=== PATIENT | female | born 1935 | race Caucasian/White ===

== ENCOUNTER 2017-02-19 12:22 | Inpatient (IN) | payer OTHER ==
[~2017-02-19] VITALS: Ht 182.9 cm; Wt 73.2 kg
[2017-02-19] MEDS ORDERED: TOUJEO SOL300 UNIT/1 SC (13:50)
[2017-02-19] MEDS ORDERED: METOLAZONE2.5 MG PO (13:50)
[2017-02-19] MEDS ORDERED: HUMALOG100 UNIT/2 SC (13:52)
[2017-02-19] MEDS ORDERED: METAXALONE800 MG PO (13:52)
[2017-02-19] MEDS ORDERED: TRAZODONE HCL50 MG PO (13:52)
[2017-02-19] MEDS ORDERED: PRAMIPEXOLE D0.75 MG PO (13:53)
[2017-02-19] MEDS ORDERED: MONTELUKAST SOD10 MG PO (13:53)
[2017-02-19] MEDS ORDERED: LOSARTAN POTASS50 MG PO (13:54)
[2017-02-19] MEDS ORDERED: MYRBETRIQ25 MG PO (13:55)
[2017-02-19] MEDS ORDERED: TRAMADOL HCL50 MG PO (13:55)
[2017-02-19] MEDS ORDERED: METOPROLOL TAR100 MG PO (13:55)
[2017-02-19] MEDS ORDERED: OMEPRAZOLE20 MG PO (13:56)
[2017-02-19] MEDS ORDERED: VENTOLIN HFA18 GM IH (13:57)
[2017-02-19] MEDS ORDERED: METOLAZONE5 MG PO (13:57)
[2017-02-19] MEDS ORDERED: IRON325 MG PO (13:57)
[2017-02-19] MEDS ORDERED: COUMADIN5 MG PO (13:58)
[2017-02-19] MEDS ORDERED: EXTRA STRENGTH500 M1 PO (13:59)
[2017-02-19] MEDS ORDERED: K-DUR20 MEQ PO (13:59)
[2017-02-19] MEDS ORDERED: NOVOLOG PE100 UNITS/ SC (13:59)
[2017-02-19] MEDS ORDERED: GABAPENTIN100 MG PO (14:00)
[2017-02-19] MEDS ORDERED: DEMADEX20 MG PO (14:00)
[2017-02-19] MEDS ORDERED: ASPIR 8181 M1 PO (14:01)
[2017-02-19] MEDS ORDERED: CALCIUM PETITE1 EACH PO (14:01)
[2017-02-19] MEDS ORDERED: NATURAL LUTEIN20 MG PO (14:02)
[2017-02-19 14:15] LABS: EOSINOPHIL (%) 0 % (0-5); HEMATOCRIT 37.2 % (36.0-46.0); IMMATURE GRANULOCYTE (%) 0.3 % (0.0-0.7); INSTRUMENT ABS NEUTROPHIL CT 5.7 K/uL; LYMPHOCYTE COUNT 0.3 K/uL (1.0-2.8); MCH 30.4 PG (29.0-34.0); MCHC 32.8 G/DL (30.0-36.0); MCV 92.8 FL (83-99); MEAN PLAT.VOLUME 10.7 uM^3 (9.5-12.4); MONOCYTE (%) 18.5 % (3-12); MONOCYTE COUNT 1.4 K/uL (0-0.8); NEUTROPHIL (%) 77.1 % (45-76); NEUTROPHIL COUNT 5.7 K/uL (1.8-6.4); PLATELET COUNT 225 K/uL (156-360); RBC DIS.WIDTH-CV 14.3 % (11.8-14.6); RBC DIS.WIDTH-SD 48.7 % (39-53); RED BLOOD COUNT 4.01 M/uL (3.80-5.20); WHITE BLOOD COUNT 7.4 K/uL (4.1-10.2)
[2017-02-19 14:30] LABS: CHLORIDE 103 mEq/L (99-109); POTASSIUM 4.1 mEq/L (3.7-5.4); SODIUM 139 mEq/L (136-147)
[2017-02-19 14:33] LABS: GLUCOSE 94 mg/dL (70-99)
[2017-02-19 14:34] LABS: ANION GAP 8 MEQ/L (2-14)
[2017-02-19 14:35] LABS: TOTAL BILIRUBIN 1.2 mg/dL (0.0-1.0)
[2017-02-19 14:36] LABS: ALKALINE PHOSPHATASE 101 IU/L (3-129); GFR ESTIMATE (CALCULATED) > 59 mL/min/
[2017-02-19 14:37] LABS: UREA NITROGEN (BUN) 21 mg/dL (9-23)
[2017-02-19 15:47] LABS: ADD MIUA? NO; BILIRUBIN NEGATIVE; BLOOD NEGATIVE; COLOR YELLOW ((YELLOW)); GLUCOSE (STRIP) NEGATIVE; KETONES NEGATIVE; LEUKOCYTES NEGATIVE; NITRITE NEGATIVE; PROTEIN (STRIP) NEGATIVE; SPECIFIC GRAVITY 1.013 (1.000-1.030); UROBILINOGEN 0.2 MG/DL (0.2-1.0)
[2017-02-19 18:35] LABS: INTER. NORMALIZED RATIO 2.1; PROTHROMBIN TIME 21.6 (9.2-11.2)
[2017-02-19 20:05] VITALS: BP 142/82
[2017-02-19 23:27] VITALS: BP 151/81
[2017-02-20 04:00] VITALS: BP 140/72
[2017-02-20 07:05] LABS: INTER. NORMALIZED RATIO 2.2; PROTHROMBIN TIME 22.7 (9.2-11.2)
[2017-02-20 07:44] VITALS: BP 117/57
[2017-02-20 09:24] LABS: HEMATOCRIT 35.7 % (36.0-46.0); MCH 30.1 PG (29.0-34.0); MCHC 32.2 G/DL (30.0-36.0); MCV 93.5 FL (83-99); MEAN PLAT.VOLUME 11.2 uM^3 (9.5-12.4); PLATELET COUNT 218 K/uL (156-360); RBC DIS.WIDTH-CV 14.2 % (11.8-14.6); RBC DIS.WIDTH-SD 48.5 % (39-53); RED BLOOD COUNT 3.82 M/uL (3.80-5.20)
[2017-02-20 09:34] LABS: ANION GAP 13 MEQ/L (2-14); CHLORIDE 98 MEQ/L (99-109); GFR ESTIMATE (CALCULATED) > 59 mL/min/; GLUCOSE 112 mg/dL (70-99); HDL CHOLESTEROL 42 MG/DL (Desirable>=50); LDL CHOLESTEROL 101 mg/dL (Desirable<100); NON-HDL CHOLESTEROL 112 mg/dL (Desirable<160); SAMPLE HEMOLYSIS CHECK 0; SAMPLE ICTERIC CHECK 0; SAMPLE LIPEMIA CHECK 0; SODIUM 138 MEQ/L (136-147); TOTAL CHOLESTEROL 154 mg/dL (Desirable<200); TRIGLYCERIDES 56 MG/DL (Normal: <150); UREA NITROGEN (BUN) 15 mg/dL (9-23)
[2017-02-20 09:38] LABS: POTASSIUM 3.1 MEQ/L (3.7-5.4)
[2017-02-20 11:22] VITALS: BP 129/57
[2017-02-20 11:28] LABS: POINT-OF-CARE METER ID UU14174225
[2017-02-20 15:10] VITALS: BP 142/68
[2017-02-20 20:00] VITALS: BP 124/56
[2017-02-21] VITALS: BP 113/54
[2017-02-21 04:00] VITALS: BP 145/67
[2017-02-21 07:09] LABS: EOSINOPHIL (%) 0.1 % (0-5); HEMATOCRIT 36.2 % (36.0-46.0); IMMATURE GRANULOCYTE (%) 0.3 % (0.0-0.7); INSTRUMENT ABS NEUTROPHIL CT 4.9 K/uL; LYMPHOCYTE COUNT 0.4 K/uL (1.0-2.8); MCH 30.2 PG (29.0-34.0); MCHC 33.1 G/DL (30.0-36.0); MCV 91.2 FL (83-99); MEAN PLAT.VOLUME 10.9 uM^3 (9.5-12.4); MONOCYTE (%) 21.9 % (3-12); MONOCYTE COUNT 1.5 K/uL (0-0.8); NEUTROPHIL COUNT 4.9 K/uL (1.8-6.4); PLATELET COUNT 264 K/uL (156-360); RBC DIS.WIDTH-CV 13.9 % (11.8-14.6); RBC DIS.WIDTH-SD 46.6 % (39-53); RED BLOOD COUNT 3.97 M/uL (3.80-5.20); WHITE BLOOD COUNT 6.9 K/uL (4.1-10.2)
[2017-02-21 07:14] LABS: INTER. NORMALIZED RATIO 3.3
[2017-02-21 07:28] LABS: PROTHROMBIN TIME 35.2 (9.2-11.2)
[2017-02-21 07:34] LABS: ANION GAP 11 MEQ/L (2-14); CHLORIDE 92 MEQ/L (99-109); GFR ESTIMATE (CALCULATED) > 59 mL/min/; SAMPLE HEMOLYSIS CHECK 0; SAMPLE ICTERIC CHECK 0; SAMPLE LIPEMIA CHECK 0; SODIUM 139 MEQ/L (136-147)
[2017-02-21 07:38] LABS: GLUCOSE 54 mg/dL (70-99); POTASSIUM 2.3 MEQ/L (3.7-5.4); UREA NITROGEN (BUN) 24 mg/dL (9-23)
[2017-02-21 07:46] VITALS: BP 122/60
[2017-02-21 08:36] LABS: POINT-OF-CARE METER ID UU13113717
[2017-02-21 11:32] VITALS: BP 149/67
[2017-02-21 15:42] VITALS: BP 126/60
[2017-02-21 17:17] LABS: POINT-OF-CARE METER ID UU13113717
[2017-02-21 19:58] VITALS: BP 118/65
[2017-02-22 00:29] LABS: APPEARANCE HAZY/SL BLOODY
[2017-02-22 00:39] LABS: RED CELL COUNT 39000 /MM^3 (0-1); WHITE CELL COUNT 20980 /MM^3 (0-200.0)
[2017-02-22 00:42] VITALS: BP 133/73
[2017-02-22 00:48] LABS: RED CELL COUNT 49000 /MM^3 (0-1); WHITE CELL COUNT 10340 /MM^3 (0-200.0)
[2017-02-22 00:51] LABS: APPEARANCE HAZY/SL BLOODY
[2017-02-22 01:18] LABS: MONO RAW COUNT 4; MONONUCLEAR WBC'S 4 %; POLY RAW COUNT 96; POLYNUCLEAR WBC'S 96 % (0-25); SYNOVIAL FLUID EOSINOPHILS 0 % (0-25)
[2017-02-22 01:24] LABS: MONO RAW COUNT 4; MONONUCLEAR WBC'S 4 %; POLY RAW COUNT 96; POLYNUCLEAR WBC'S 96 % (0-25); SYNOVIAL FLUID EOSINOPHILS 0 % (0-25)
[2017-02-22 03:52] VITALS: BP 129/69
[2017-02-22 06:51] LABS: EOSINOPHIL (%) 0.1 % (0-5); HEMATOCRIT 36.4 % (36.0-46.0); IMMATURE GRANULOCYTE (%) 0.4 % (0.0-0.7); INSTRUMENT ABS NEUTROPHIL CT 5.2 K/uL; LYMPHOCYTE COUNT 0.4 K/uL (1.0-2.8); MCH 30.9 PG (29.0-34.0); MCHC 34.1 G/DL (30.0-36.0); MCV 90.8 FL (83-99); MEAN PLAT.VOLUME 10.9 uM^3 (9.5-12.4); MONOCYTE (%) 21.8 % (3-12); MONOCYTE COUNT 1.6 K/uL (0-0.8); NEUTROPHIL (%) 72.5 % (45-76); NEUTROPHIL COUNT 5.2 K/uL (1.8-6.4); PLATELET COUNT 310 K/uL (156-360); RBC DIS.WIDTH-CV 13.8 % (11.8-14.6); RBC DIS.WIDTH-SD 46.5 % (39-53); RED BLOOD COUNT 4.01 M/uL (3.80-5.20); WHITE BLOOD COUNT 7.1 K/uL (4.1-10.2)
[2017-02-22 07:17] LABS: ANION GAP 15 MEQ/L (2-14); CHLORIDE 86 MEQ/L (99-109); GFR ESTIMATE (CALCULATED) 56 mL/min/; POTASSIUM 2.6 MEQ/L (3.7-5.4); SAMPLE HEMOLYSIS CHECK 0; SAMPLE ICTERIC CHECK 0; SAMPLE LIPEMIA CHECK 0; SODIUM 135 MEQ/L (136-147)
[2017-02-22 07:19] LABS: GLUCOSE 293 mg/dL (70-99); UREA NITROGEN (BUN) 42 mg/dL (9-23)
[2017-02-22 07:37] LABS: INTER. NORMALIZED RATIO 3.9
[2017-02-22 07:42] LABS: CRYSTALS NO CRYSTALS SEEN
[2017-02-22 07:47] VITALS: BP 144/71
[2017-02-22] MEDS ORDERED: NEXIUM40 MG PO (11:12)
[2017-02-22 12:47] VITALS: BP 142/69
[2017-02-22 14:52] LABS: POINT-OF-CARE METER ID UU13113717
[2017-02-22 15:39] LABS: ANION GAP 14 MEQ/L (2-14); CHLORIDE 88 MEQ/L (99-109); GFR ESTIMATE (CALCULATED) 56 mL/min/; GLUCOSE 314 mg/dL (70-99); MAGNESIUM 1.9 mg/dl (1.3-2.7); POTASSIUM 2.8 MEQ/L (3.7-5.4); SAMPLE HEMOLYSIS CHECK 0; SAMPLE ICTERIC CHECK 0; SAMPLE LIPEMIA CHECK 0; SODIUM 134 MEQ/L (136-147); UREA NITROGEN (BUN) 50 mg/dL (9-23)
[2017-02-22 16:07] VITALS: BP 120/60
[2017-02-22 20:18] VITALS: BP 122/78
[2017-02-23] VITALS: BP 132/61
[2017-02-23 03:56] VITALS: BP 129/72
[2017-02-23 06:02] LABS: EOSINOPHIL (%) 0.4 % (0-5); HEMATOCRIT 37.8 % (36.0-46.0); IMMATURE GRANULOCYTE (%) 0.4 % (0.0-0.7); INSTRUMENT ABS NEUTROPHIL CT 5.7 K/uL; LYMPHOCYTE COUNT 0.4 K/uL (1.0-2.8); MCH 30.8 PG (29.0-34.0); MCHC 33.9 G/DL (30.0-36.0); MCV 91.1 FL (83-99); MEAN PLAT.VOLUME 10.6 uM^3 (9.5-12.4); MONOCYTE (%) 18.1 % (3-12); MONOCYTE COUNT 1.4 K/uL (0-0.8); NEUTROPHIL (%) 75.6 % (45-76); NEUTROPHIL COUNT 5.7 K/uL (1.8-6.4); PLATELET COUNT 331 K/uL (156-360); RBC DIS.WIDTH-CV 13.8 % (11.8-14.6); RBC DIS.WIDTH-SD 46.7 % (39-53); RED BLOOD COUNT 4.15 M/uL (3.80-5.20); WHITE BLOOD COUNT 7.6 K/uL (4.1-10.2)
[2017-02-23 06:12] LABS: PROTHROMBIN TIME 52.6 (9.2-11.2)
[2017-02-23 06:28] LABS: ANION GAP 10 MEQ/L (2-14); CHLORIDE 91 MEQ/L (99-109); GFR ESTIMATE (CALCULATED) > 59 mL/min/; SAMPLE HEMOLYSIS CHECK 0; SAMPLE ICTERIC CHECK 0; SAMPLE LIPEMIA CHECK 0; SODIUM 140 MEQ/L (136-147); UREA NITROGEN (BUN) 50 mg/dL (9-23)
[2017-02-23 06:29] LABS: GLUCOSE 97 mg/dL (70-99)
[2017-02-23 08:02] VITALS: BP 129/58
[2017-02-23 08:23] LABS: INTER. NORMALIZED RATIO 4.9
[2017-02-23 11:09] VITALS: BP 112/56
[2017-02-23 15:37] VITALS: BP 109/54
[2017-02-23 21:40] VITALS: BP 114/74
[2017-02-24] VITALS (7 sets, daily range): BP systolic 92–154; BP diastolic 50–85
[2017-02-24 05:59] LABS: PROTHROMBIN TIME 53.9 (9.2-11.2)
[2017-02-24 09:09] LABS: POINT-OF-CARE METER ID UU13113717
[2017-02-24 09:16] LABS: ANION GAP 12 MEQ/L (2-14); CHLORIDE 88 MEQ/L (99-109); GFR ESTIMATE (CALCULATED) > 59 mL/min/; POTASSIUM 3.6 MEQ/L (3.7-5.4); SAMPLE HEMOLYSIS CHECK 0; SAMPLE ICTERIC CHECK 0; SAMPLE LIPEMIA CHECK 0; SODIUM 135 MEQ/L (136-147); UREA NITROGEN (BUN) 56 mg/dL (9-23)
[2017-02-24 09:19] LABS: GLUCOSE 156 mg/dL (70-99)
[2017-02-24 21:22] LABS: POINT-OF-CARE METER ID UU13113717
[2017-02-25 06:16] LABS: INTER. NORMALIZED RATIO 2.7; PROTHROMBIN TIME 28.5 (9.2-11.2)
[2017-02-25 09:21] LABS: ANION GAP 9 MEQ/L (2-14); CHLORIDE 90 MEQ/L (99-109); GFR ESTIMATE (CALCULATED) > 59 mL/min/; GLUCOSE 228 mg/dL (70-99); POTASSIUM 3.5 MEQ/L (3.7-5.4); SAMPLE HEMOLYSIS CHECK 0; SAMPLE ICTERIC CHECK 0; SAMPLE LIPEMIA CHECK 0; SODIUM 135 MEQ/L (136-147); UREA NITROGEN (BUN) 62 mg/dL (9-23)
[2017-02-25 09:40] VITALS: BP 159/66
[2017-02-25] MEDS ORDERED: Colchicine,Colcrys PO (11:36)
[2017-02-25] MEDS ORDERED: COUMADIN3 MG PO (11:37)
[2017-02-25] MEDS ORDERED: TRAMADOL HCL50 MG PO (11:38)
[2017-02-25 12:56] VITALS: BP 148/74
[2017-02-25] MEDS ORDERED: LEVEMIR100 UNIT/2 SC (13:14)
[2017-02-26 12:53] LABS: POINT-OF-CARE METER ID UU13113717
[2017-02-26 13:03] LABS: POINT-OF-CARE METER ID UU14174225
== END 2017-02-25 15:34 | DRG 602 ==
LOC: EME 12:22 → EDOF 17:08 → 5SOUTH 17:08
PROVIDERS: Internal Medicine; Orthopaedic Surgery Sports Medicine; Physician Assistant
DX: L03.115 Cellulitis of right lower limb (principal); G92 Toxic encephalopathy; J18.9 Pneumonia, unspecified organism; I27.2 Other secondary pulmonary hypertension; I48.2 Chronic atrial fibrillation; F03.90 Unspecified dementia, unspecified severity, without behavioral disturbance, psychotic disturbance, mood disturbance, and anxiety; E11.649 Type 2 diabetes mellitus with hypoglycemia without coma; E87.6 Hypokalemia; J32.0 Chronic maxillary sinusitis; K59.00 Constipation, unspecified; L29.9 Pruritus, unspecified; M10.9 Gout, unspecified; M11.261 Other chondrocalcinosis, right knee; M19.90 Unspecified osteoarthritis, unspecified site; M71.22 Synovial cyst of popliteal space [Baker], left knee; R79.1 Abnormal coagulation profile; Z79.01 Long term (current) use of anticoagulants; Z79.4 Long term (current) use of insulin; Z86.73 Personal history of transient ischemic attack (TIA), and cerebral infarction without residual deficits; Z87.891 Personal history of nicotine dependence; Z91.81 History of falling; R00.0 Tachycardia, unspecified; R11.2 Nausea with vomiting, unspecified; R21 Rash and other nonspecific skin eruption; R26.2 Difficulty in walking, not elsewhere classified; I87.2 Venous insufficiency (chronic) (peripheral)
CPT/HCPCS: 70450; 71010; 71020; 73522; 73560; 80048; 80048 91; 80053; 80061; 81003; 82948; 83605; 83735; 83880; 85025; 85027; 85610; 87040; 87205; 89051; 89060; 92610 GN; 93005; 93970; 94799; 99281; 99285; J0690; J1815; J3480; J7050

== ENCOUNTER → 2017-03-14 | Outpatient (CLI) | payer OTHER ==
[~2017-03-14] MED LIST: ASPIR 8181 M1 PO; CALCIUM PETITE1 EACH PO; COUMADIN3 MG PO; COUMADIN5 MG PO; Colchicine,Colcrys PO; DEMADEX20 MG PO; EXTRA STRENGTH500 M1 PO; GABAPENTIN100 MG PO; HUMALOG100 UNIT/2 SC; IRON325 MG PO; K-DUR20 MEQ PO; LEVEMIR100 UNIT/2 SC; LOSARTAN POTASS50 MG PO; METAXALONE800 MG PO; METOLAZONE2.5 MG PO; METOLAZONE5 MG PO; METOPROLOL TAR100 MG PO; MONTELUKAST SOD10 MG PO; MYRBETRIQ25 MG PO; NATURAL LUTEIN20 MG PO; NEXIUM40 MG PO; NOVOLOG PE100 UNITS/ SC; OMEPRAZOLE20 MG PO; PRAMIPEXOLE D0.75 MG PO; TOUJEO SOL300 UNIT/1 SC; TRAMADOL HCL50 MG PO; TRAZODONE HCL50 MG PO; VENTOLIN HFA18 GM IH
== END ==
LOC: RAD 08:53
DX: R13.10 Dysphagia, unspecified (principal)
CPT/HCPCS: 74230; 92611 GN; G8996 GN CJ; G8997 GN CJ; G8998 GN CJ